=== PATIENT | female | born 1995 | race Caucasian/White ===

== ENCOUNTER 2016-12-02 16:42 | Emergency (ER) | payer OTHER | END 2016-12-02 18:50 | disposition home or self-care (01) | DX: R55 Syncope and collapse (principal); R03.0 Elevated blood-pressure reading, without diagnosis of hypertension; F17.200 Nicotine dependence, unspecified, uncomplicated ==

== ENCOUNTER 2017-11-04 11:55 | Emergency (ER) | payer OTHER ==
[2017-11-04 12:04] VITALS: BP 120/84
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
== END 2017-11-04 12:50 | disposition home or self-care (01) ==
LOC: ED 11:55
DX: S16.1XXA Strain of muscle, fascia and tendon at neck level, initial encounter (principal); V49.49XA Driver injured in collision with other motor vehicles in traffic accident, initial encounter; Y92.481 Parking lot as the place of occurrence of the external cause; F17.200 Nicotine dependence, unspecified, uncomplicated
CPT/HCPCS: 99282; 99283